=== PATIENT | female | born 2000 | race Caucasian/White ===

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

== ENCOUNTER 2021-01-21 08:04 | Outpatient (CLI) | payer OTHER ==
[~2021-01-21 08:04] MED LIST changes: +BENADRYL25 MG PO; +CLEOCIN HCL300 MG PO
== END 2021-01-21 12:59 | disposition home or self-care (01) ==
LOC: LAB 08:04
DX: L70.0 Acne vulgaris (principal)

== ENCOUNTER 2021-02-25 07:51 | Outpatient (CLI) | payer OTHER | END 2021-02-25 08:00 | disposition home or self-care (01) | LOC: LAB 07:51 → EDBD 07:51 → LAB 08:00 | DX: L70.0 Acne vulgaris (principal) ==

== ENCOUNTER 2021-03-07 07:45 | Outpatient (CLI) | payer OTHER | END 2021-03-07 07:49 | disposition home or self-care (01) | LOC: EDBD 07:45 → LAB 07:45 | PROVIDERS: ATTEND Obstetrics & Gynecology | DX: N92.5 Other specified irregular menstruation (principal); I10 Essential (primary) hypertension; E78.2 Mixed hyperlipidemia ==

== ENCOUNTER 2021-03-07 08:21 | Outpatient (CLI) | payer OTHER | END 2021-03-07 15:19 | disposition home or self-care (01) | LOC: EDBD 08:21 → SONOGRAMA 08:21 | PROVIDERS: ATTEND Obstetrics & Gynecology | DX: N83.299 Other ovarian cyst, unspecified side (principal) ==

== ENCOUNTER → 2021-04-03 08:48 | Outpatient (CLI) | payer OTHER | END | disposition home or self-care (01) | LOC: LAB 08:48 → EDBD 08:48 | DX: L70.0 Acne vulgaris (principal) ==

== ENCOUNTER → 2021-05-18 | Outpatient (CLI) | payer OTHER | END | disposition home or self-care (01) | LOC: LAB 08:54 | DX: L70.0 Acne vulgaris (principal); Z32.00 Encounter for pregnancy test, result unknown ==

== ENCOUNTER 2021-08-26 08:10 | Outpatient (CLI) | payer OTHER | END 2021-08-26 15:00 | disposition home or self-care (01) | LOC: LAB 08:10 | DX: L70.0 Acne vulgaris (principal) ==

== ENCOUNTER 2022-02-01 18:59 | Emergency (ER) | payer OTHER ==
[~2022-02-01] VITALS: Ht 157.5 cm; Wt 67.1 kg
== END 2022-02-01 20:19 | disposition home or self-care (01) ==
LOC: ER 18:59 → EMR PED 19:02 → ER 19:02 → EMR PED 20:19
DX: J00 Acute nasopharyngitis [common cold] (principal); J06.9 Acute upper respiratory infection, unspecified

== ENCOUNTER 2022-03-22 16:35 | Emergency (ER) | payer OTHER ==
[~2022-03-22] VITALS: Ht 157.5 cm; Wt 68.5 kg
== END 2022-03-22 20:09 | disposition home or self-care (01) ==
LOC: ER 16:35 → EMR PED 16:39 → ER 16:39 → EMR PED 20:09
DX: J98.8 Other specified respiratory disorders (principal); J32.9 Chronic sinusitis, unspecified; U07.1 COVID-19

== ENCOUNTER → 2022-05-29 11:25 | Outpatient (CLI) | payer OTHER | END | disposition home or self-care (01) | LOC: LAB 11:25 | PROVIDERS: ATTEND Specialist | DX: D64.9 Anemia, unspecified (principal); R10.9 Unspecified abdominal pain; N39.0 Urinary tract infection, site not specified; E03.9 Hypothyroidism, unspecified; E22.1 Hyperprolactinemia; A74.9 Chlamydial infection, unspecified; A64 Unspecified sexually transmitted disease; N91.1 Secondary amenorrhea; Z32.00 Encounter for pregnancy test, result unknown ==

== ENCOUNTER → 2022-06-16 | Emergency (ER) | payer OTHER ==
[~2022-06-16] VITALS: Ht 157.5 cm; Wt 69.4 kg
== END | disposition home or self-care (01) ==
LOC: ER 12:37 → EMR PED 12:41
DX: N39.0 Urinary tract infection, site not specified (principal); R10.2 Pelvic and perineal pain; R30.0 Dysuria